=== PATIENT | female | born 1975 ===

== ENCOUNTER 2021-11-01 09:55 | Outpatient (REF) | payer MEDICAID, SELFPAY ==
--- NOTE | 2021-11-01 | PFT_ITS ---
FLOWS: FEV1 89% of predicted at 2.08 L. FVC 93% of predicted at 2.69 L. FEV1 to FVC ratio of 0.77. No bronchodilator response except in small to medium airways. LUNG VOLUMES: Total lung capacity 90% of predicted at 3.78 L. Residual volume 102% of predicted at 1.42 L. Slow vital capacity 85% of predicted at 2.36 L. Expiratory reserve volume 69% of predicted at 0.61 L. Diffusion capacity is normal. IMPRESSION: No obstructive or restrictive ventilatory defect. No bronchodilator response except in small to medium airways. Suman Caballero MD AP/MODL / [id number]
== END 2021-11-01 09:56 | disposition home or self-care (01) ==
LOC: HO.RESP 09:55
PROVIDERS: PCP Pediatrics; Visit Provider Pediatrics
DX: J30.9 Allergic rhinitis, unspecified (principal); J45.998 Other asthma
CPT/HCPCS: 94060; 94727; 94729

== ENCOUNTER 2023-09-25 14:30 | Outpatient (REF) | payer OTHER, SELFPAY ==
[2023-09-25 17:23] LABS: MANUAL DIFF FLAG NO
[2023-09-25 17:33] LABS: Basophils Absolute Auto 0.1 X10*3/uL (0.0-0.2); Basophils Percent Auto 0.6 % (0-2); Eosinophils Absolute Auto 0.2 X10*3/uL (0.0-0.4); Eosinophils Percent Auto 1.4 % (0-4); Hematocrit 37.1 % (37.0-47.0); Hemoglobin 12.4 g/dl (12.0-16.0); Imm Gran Abs Auto 0.04 X10*3/uL (0.00-0.03); Imm Gran Pct Auto 0.4 % (0.0-0.4); Lymphocytes Absolute Auto 1.7 X10*3/uL (1.2-4.9); Lymphocytes Percent Auto 15.7 % (20-40); Mean Corpuscular HGB Conc 33.4 g/dl (31.0-35.0); Mean Corpuscular Hemoglobin 28.9 pg (27.0-33.0); Mean Corpuscular Volume 86.5 fL (80.0-98.0); Mean Platelet Volume 10.1 fL (9.4-12.3); Monocytes Absolute Auto 0.5 X10*3/uL (0.1-1.2); Monocytes Percent Auto 4.6 % (2-11); Neutrophils Absolute Auto 8.3 x10*3/uL (2.0-8.3); Neutrophils Percent Auto 77.3 % (45-73); Platelet Count 394 X10*3/uL (160-400); Red Blood Count 4.29 X10*6/uL (4.20-5.50); Red Cell Distribution Width 12.9 % (11.0-16.0); White Blood Count 10.7 X10*3/uL (4.8-10.8)
[2023-09-25 17:48] LABS: Alanine Aminotransferase 6 U/L (0-31); Alkaline Phosphatase 66 U/L (39-117); Anion Gap 12 (12-20); Aspartate Amino Transferase 11 U/L (5-31); Bilirubin Total 0.5 mg/dL (0.0-1.0); Blood Urea Nitrogen 9 mg/dL (9-16); C Reactive Protein 0.23 mg/dL (< or = 0.50); Calcium 8.8 mg/dL (8.4-10.2); Carbon Dioxide 26 mmol/L (22-29); Chloride 107 mmol/L (96-108); Estimated Glomerular Filt Rate > 60; Glucose Random 98 mg/dL (60-115); Lactate Dehydrogenase 111 U/L (122-220); Lipase 12 U/L (8-78); Potassium 3.5 mmol/L (3.3-5.1); Sodium 141 mmol/L (135-145); Total Protein 7.4 g/dL (6.5-8.0)
[2023-09-25 18:19] LABS: TSH reflex Free T4 0.53 uIU/mL (0.32-4.0)
[2023-09-25 19:07] LABS: Erythrocyte Sedimentation Rate 20 MM/HR (0-20)
[2023-09-26 07:26] LABS: HIV AB/AG Nonreactive (Nonreactive); HIV Num 1 0.05 S/CO (0.00-0.99)
[2023-09-26 07:27] LABS: Syphilis Screen Nonreactive (Nonreactive)
== END 2023-09-25 14:31 | disposition home or self-care (01) ==
LOC: HO.CHCLDS 14:30
PROVIDERS: Visit Provider Family Medicine
DX: Z11.4 Encounter for screening for human immunodeficiency virus [HIV] (principal); R10.13 Epigastric pain; R63.4 Abnormal weight loss
CPT/HCPCS: 36415; 80053; 83615; 83690; 84443; 85025; 85652; 86140; 86780; 87389

== ENCOUNTER 2023-09-27 | Outpatient (REF) | payer OTHER, SELFPAY ==
[2023-09-30 06:51] LABS: OBS1 NEGATIVE (NEGATIVE); OBS2 NEGATIVE (NEGATIVE); OBS3 NEGATIVE (NEGATIVE)
[2023-09-30 06:52] LABS: OBS Int Ctl Valid YES
== END 2023-09-27 00:01 | disposition home or self-care (01) ==
LOC: HO.CHCLNP
PROVIDERS: Visit Provider Family Medicine
DX: R10.13 Epigastric pain (principal); R63.4 Abnormal weight loss
CPT/HCPCS: 82270; 87338

== ENCOUNTER 2023-10-14 11:33 | Outpatient (REF) | payer OTHER, SELFPAY ==
[2023-10-16 07:38] LABS: Immunoglobulin A 596 mg/dL (47-310); Transglutaminase IgA <1.0 U/mL
== END 2023-10-14 11:34 | disposition home or self-care (01) ==
LOC: HO.CHCLDS 11:33
PROVIDERS: Visit Provider Pediatrics
DX: K52.9 Noninfective gastroenteritis and colitis, unspecified (principal)
CPT/HCPCS: 36415; 82784; 86364

== ENCOUNTER 2023-11-06 10:33 | Outpatient (REF) | payer MEDICAID, SELFPAY ==
[2023-11-06 16:08] LABS: CT PCR NOT DETECTED (Not Detect.); NG PCR NOT DETECTED (Not Detect.)
== END 2023-11-06 10:34 | disposition home or self-care (01) ==
LOC: HO.CHCLNP 10:33
PROVIDERS: Visit Provider Pediatrics
DX: Z01.419 Encounter for gynecological examination (general) (routine) without abnormal findings (principal)
CPT/HCPCS: 0353U; 88142

== ENCOUNTER 2023-11-24 10:16 | Outpatient (AMB) | payer BC, SELFPAY ==
--- NOTE | 2023-11-24 10:27 | MHC.OFFVIS ---
Vital Signs 11/24/23 10:35 Height 4 ft 10 in Weight 115 lb 8.356 oz BMI 24.1 BP 114/54 L Blood Pressure Location Lt brachial Position Sitting Pulse 66 Pulse Source Pulse Oximeter Pulse Oximetry (%) 99 Oxygen Delivery Method Room Air Intake Visit Reasons: Epigastric pain Intake Note: Bindu presents in office today for a scheduled initial assessment visit. CC; Epigastric pain. Onset - Pt reports onset approximately dated 05/2023. Pt reports sx are intermittent. Pt reports pain is located almost under the rib cage / sternum. Pt reports that they have unintentionally lost approx. 20 lbs since May. Pt also reports having frequent GERD sx (reflux). Pt also reports having diarrhea, no constipation. Pt denies any presence of melena. Pt reports PCP recommended a liquid antacid which they have been taking PRN without much relief to this point. 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 Patient reports that she has been having epigastric pain postprandially that started way back in May. Patient reports that she has not changed anything different about her diet. Patient reports that she was not around people that had similar symptoms and did not travel anywhere. Patient states that she 1 day started with epigastric pain bloating and diarrhea. Patient reported nausea without vomiting. Since then patient has been having frequent postprandial loose stools with epigastric pain. Patient was told to take [id number] acid relieve when her symptoms are present. Since her symptoms began patient lost 20 lb or so. Patient denies any melena, hematochezia. Patient reports occasional dyspepsia without dysphagia or odynophagia. Patient reports epigastric burning, feels like acid is coming up specially after meals. Patient has no symptoms when she is drinking water. Patient reports that her symptoms are usually present after meals. Patient reports that despite having loose stools postprandially she still feels like she is constipated and bloated. PFSH Family History Paternal Grandfather FHx: stomach cancer Family/Other Lung cancer Social History Alcohol intake: never Patient Tobacco Use Status: Never used Tobacco Review of Systems Const Denies weight gain and Denies weight loss ENT Reports no additional complaints, Denies dysphagia and Denies odynophagia Card Reports no additional complaints Resp Reports no additional complaints GI Denies abdominal pain, Denies belching, Denies melena, Denies bloating, Denies change in bowel habits, Denies dysphagia, Denies excessive flatus, Denies dyspepsia, Denies heartburn, Denies diarrhea, Denies loose stools, Denies nausea, Denies odynophagia and Denies vomiting Musc Reports no additional complaints Neuro Reports no additional complaints Psych Reports no additional complaints Endo Reports no additional complaints Physical Exam Vital Signs: Last Vital Signs Pulse 66 11/24/23 10:35 BP 114/54 L 11/24/23 10:35 Pulse Ox 99 11/24/23 10:35 Oxygen Delivery Method Room Air 11/24/23 10:35 BMI result Body Mass Index 24.1 Const General: healthy appearing, no acute distress and well developed Nutritional Appearance: well nourished Orientation/consciousness: patient oriented x3 HEENT Face and sinus: Yes normal facial exam Mouth: Normal oral and palatal mucosa present Throat: Yes posterior oropharynx normal, Yes tonsils normal and Yes uvula midline Resp Effort & Inspection: normal respiratory effort, able to speak in complete sentences, no tracheal deviation and symmetric chest movement Auscultation: clear to auscultation bilaterally Cardio Rate: regular rate GI Inspection: Yes normal to inspection and No distended Palpation (GI): Soft to palpation, not firm, nontender and No hepatosplenomegaly present Auscultation: normal bowel sounds General: Yes no CVA tenderness Back/Spine/Pelvis Back: no CVA tenderness Skin General skin exam: elasticity normal, turgor normal and dry skin Neuro General: patient oriented x3 Psych Appearance: grossly normal Mental Status: mental status grossly normal Attitude: cooperative Assessment & Plan Assessment & Plan (1) GERD (gastroesophageal reflux disease): Code(s): K21.9 - Gastro-esophageal reflux disease without esophagitis Qualifiers: Esophagitis presence: esophagitis presence not specified Qualified Code(s): K21.9 - Gastro-esophageal reflux disease without esophagitis (2) Postprandial abdominal bloating: Code(s): R14.0 - Abdominal distension (gaseous) (3) Postprandial epigastric pain: Code(s): R10.13 - Epigastric pain (4) Postprandial diarrhea: Code(s): K52.9 - Noninfective gastroenteritis and colitis, unspecified (5) Constipation: Code(s): K59.00 - Constipation, unspecified Qualifiers: Constipation type: slow transit constipation Qualified Code(s): K59.01 - Slow transit constipation Plan Will rule out malabsorption and pancreatic insufficiency. Patient will be sent for FL upper GI/ small-bowel study. Patient will start taking omeprazole in the morning half an hour before breakfast. Patient will also take Citrucel after breakfast to help her bulk her stools and Senokot at night time to help her eliminate her bowels better. Discussed with patient avoiding dietary triggers and late night snacking. Staying upright for minimum 3 hours after meals discussed with patient. Patient will also try low FODMAP diet. List of food recommended as well as list of food to avoid given to patient. Patient will return in 6 months, sooner on as needed basis. She is agreeable to this plan and verbalizes understanding of instructions. She was given the opportunity to ask questions and all questions answered. Thank you for allowing me to participate in her care Orders: Orders Vitamin B12 and Folate Today R19.7 - Diarrhea, unspecified Pancreatic Elastase-1 Today R10.9 - Unspecified abdominal pain Vitamin D 25-OH (D2 and D3) Today E55.9 - Vitamin D deficiency, unspecified FL upper GI small bowel Today R10.13 - Epigastric pain, R14.0 - Abdominal distension (gaseous) Medications: New sennosides (Natural Senna Laxative) 17.2 mg (2 x 8.6 mg) PO BEDTIME 60 tabs 3RF constipation K59.00 - Constipation, unspecified methylcellulose (laxative) (Citrucel) take it with full glass of water 500 mg PO DAILY 30 tabs 2RF K59.00 - Constipation, unspecified omeprazole 20 mg PO DAILY 30 caps 3RF K21.9 - Gastro-esophageal reflux disease without esophagitis Coding Level of Care Code New Pt Level 4 (96470) Diagnoses Gastroesophageal reflux disease, unspecified whether esophagitis present K21.9 Esophagitis presence: esophagitis presence not specified Postprandial abdominal bloating R14.0 Postprandial epigastric pain R10.13 Postprandial diarrhea K52.9 Slow transit constipation K59.01 Constipation type: slow transit constipation Time Spent (min) 45 Comment 30 minutes spent with patient and additional 15 minutes spent reviewing her records
[2023-11-24 10:35] VITALS: BP 114/54; PULSE 66; O2SAT 99; BMI 24.1
== END 2023-11-24 11:06 | disposition home or self-care (01) ==
PROVIDERS: PCP Pediatrics; Visit Provider Nurse Practitioner Family
DX: K21.9 Gastro-esophageal reflux disease without esophagitis (principal); R14.0 Abdominal distension (gaseous); R10.13 Epigastric pain; K52.9 Noninfective gastroenteritis and colitis, unspecified; K59.01 Slow transit constipation
CPT/HCPCS: 99204

== ENCOUNTER 2023-11-24 10:16 | Outpatient (REF) | payer BC, SELFPAY ==
[2023-11-24 12:51] LABS: Folate 11.7 ng/mL (> or = 4.0); Vitamin B12 323 pg/mL (200-900)
[2023-11-28 12:48] LABS: Vitamin D 25-OH, D2 <4 ng/mL; Vitamin D 25-OH, D3 12 ng/mL; Vitamin D 25-OH, Total 12 ng/mL (30-100)
[2023-12-02 23:19] LABS: Pancreatic Elastase-1 >500 mcg/g
== END 2023-11-24 10:17 | disposition home or self-care (01) ==
LOC: HO.LAB 10:16
PROVIDERS: PCP Pediatrics; Visit Provider Nurse Practitioner Family
DX: E55.9 Vitamin D deficiency, unspecified (principal); R10.9 Unspecified abdominal pain; K21.9 Gastro-esophageal reflux disease without esophagitis; R14.0 Abdominal distension (gaseous); K52.9 Noninfective gastroenteritis and colitis, unspecified; K59.01 Slow transit constipation; R10.13 Epigastric pain
CPT/HCPCS: 36415; 82306; 82607; 82656; 82746

== ENCOUNTER 2024-01-29 07:45 | Outpatient (REF) | payer BC, SELFPAY ==
--- NOTE | ~2024-01-29 | FL_ITS ---
EXAMINATION: XR FLUOROSCOPY UPPER GI WITH SMALL BOWEL SERIES. CLINICAL INFORMATION: Reflux. Abdominal bloating. COMPARISON: None TECHNIQUE: Fluoroscopic air contrast upper GI examination was performed utilizing standard techniques with thin and thick barium and effervescent granules. Numerous spot images were obtained. FINDINGS: UPPER GI: Dual and single contrast images of the esophagus demonstrate normal caliber, contour, and mucosal pattern. No evidence of stricture, mass, or ulcerations identified. Esophageal peristalsis is moderately disorganized. A very small type I hiatal hernia is present. No significant gastroesophageal reflux was seen during the course of the examination and on reflux views. Dual contrast and single contrast images of the stomach demonstrated a normal contour. There is a mixed density present in the stomach that gives the appearance of multiple filling detects, however, this appearance changes with patient positioning. This likely represents retained food. Evaluation of the gastric mucosa is limited due to this. No masses are present. Contrast freely passed into the gastric antrum and duodenal bulb without delay. Single and air-contrast images of the duodenal bulb demonstrate no abnormality. The duodenal sweep has a normal appearance, course, and mucosal fold appearance. SMALL BOWEL SERIES: Professor Of Physical Education view demonstrates normal bowel gas pattern, with mild fecal material in the ascending and descending colon. There is a minimal levoconvex lumbar scoliosis. No suspicious bone abnormality. 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 Likely from childbirth. Hip joints appear normal. No abnormal soft tissue calcifications or organomegaly. Lung bases are clear. The imaged small bowel has a normal fold pattern and caliber. No strictures, masses, or dilated segment/loops are present. Contrast is seen in the right colon after 60 minutes. After 60 minutes, there is still a large amount of contrast remaining present in the stomach. FLUOROSCOPY TIME: 4 minutes 6 seconds Number of Spot Images: 10 Number of Cine: 15 DOSE AREA PRODUCT: 2315 uGy-m2 (microgray-meter squared) FL/FL upper GI small bowel IMPRESSION: 1. Very small type I hiatal hernia 2. Moderately disordered esophageal peristalsis. 3. There is a mixed density present in the stomach that gives the appearance of multiple filling detects in the gastric mucosa, however, this appearance changes with patient positioning. This mixed density likely represents retained food. Evaluation of the gastric mucosa is, therefore, limited. After 60 minutes, there is still a large amount of barium present in the stomach. This may represent gastric hypomotility/gastroparesis. Recommend correlation with gastric emptying study. 4. Unremarkable small bowel series. Terminal ileum is normal. Contrast is seen in the right colon after 60 minutes. This procedure was performed by Stephon Boyd PA-C, and supervised by Dr. Holt Electronically signed by: Juan J Holt MD 01/30/2024 05:35 PM EDT
== END 2024-01-29 07:46 | disposition home or self-care (01) ==
LOC: HO.XRAY 07:45
PROVIDERS: PCP Pediatrics; Visit Provider Nurse Practitioner Family
DX: R14.0 Abdominal distension (gaseous) (principal); R10.13 Epigastric pain
CPT/HCPCS: 74240; 74248

== ENCOUNTER → 2024-01-29 07:46 | Outpatient (BNV) | payer BC, SELFPAY | PROVIDERS: PCP Pediatrics; Visit Provider Radiology Diagnostic Radiology | DX: R14.0 Abdominal distension (gaseous) (principal); K21.9 Gastro-esophageal reflux disease without esophagitis | CPT/HCPCS: 74240; 74248 ==

== ENCOUNTER 2024-05-11 09:54 | Outpatient (AMB) | payer BC, SELFPAY ==
--- NOTE | 2024-05-11 10:01 | MHC.OFFVIS ---
Vital Signs 05/11/24 10:09 Height 4 ft 10 in Weight 123 lb 14.397 oz BMI 25.9 BP 114/56 L Blood Pressure Location Lt brachial Position Sitting Pulse 72 Pulse Source Pulse Oximeter Pulse Oximetry (%) 99 Oxygen Delivery Method Room Air Intake Visit Reasons: 6 month follow up Intake Note: sennosides 8.6 mg tablet?(Natural Senna Laxative)?17.2 mg (2 x 8.6 mg) PO BEDTIME 60 tabs 3RF Majo,Natalie D 11/24/23 10:59 (Transmitted) methylcellulose (laxative) 500 mg tablet?(Citrucel)?500 mg PO DAILY 30 tabs 2RF Majo,Natalie D 11/24/23 10:59 (Transmitted) omeprazole 20 mg capsule,delayed release?20 mg PO DAILY 30 caps 3RF Majo,Natalie D 11/24/23 10:59 (Transmitted) Pt still taking medications PRN. Relevant Flags or Indicators ? Requires [employer] Consultant? Jeni Ruano presents in office today for a scheduled 6 mos FUV. CC; Recent labs, diagnostics, or med orders placed. ?All fulfilled. Relevant GI Sx or new concerns per pt? No changes to presentation. Pt states that they had 2-3 mos. where they felt completely normal. Pt now experiencing some of the similar chronic sx as their previous episodes. ? Hx of any recent surgeries? None [employer] Consultant Required: No Allergies No Known Allergies Allergy (Verified 05/11/24 10:02) HPI HPI 6 month follow up: Details: LAST VISIT: GERD (gastroesophageal reflux disease) Postprandial abdominal bloating Postprandial epigastric pain Postprandial diarrhea Constipation Plan Will rule out malabsorption and pancreatic insufficiency. Patient will be sent for [place] upper GI/ small-bowel study. Patient will start taking omeprazole in the morning half an hour before breakfast. Patient will also take Citrucel after breakfast to help her bulk her stools and Senokot at night time to help her eliminate her bowels better. Discussed with patient avoiding dietary triggers and late night snacking. Staying upright for minimum 3 hours after meals discussed with patient. Patient will also try low FODMAP diet. List of food recommended as well as list of food to avoid given to patient. Patient will return in 6 months, sooner on as needed basis. She is agreeable to this plan and verbalizes understanding of instructions. She was given the opportunity to ask questions and all questions answered. ? Thank you for allowing me to participate in her care Orders Orders Vitamin B12 and Folate Today R19.7 Pancreatic Elastase-1 Today R10.9 Vitamin D 25-OH (D2 and D3) Today E55.9 FL upper GI small bowel Today R10.13, R14.0 Medications New sennosides (Natural Senna Laxative) 17.2 mg (2 x 8.6 mg) PO BEDTIME 60 tabs 3RF constipation K59.00 methylcellulose (laxative) (Citrucel) take it with full glass of water 500 mg PO DAILY 30 tabs 2RF K59.00 omeprazole 20 mg PO DAILY 30 caps 3RF K21.9 TODAY'S VISIT Patient is here today for follow-up and to discuss going for colonoscopy. Patient reports that she was doing well till about couple weeks ago when she started again with postprandial loose stools. Patient reports that does not happen every time she eats only with certain food. Patient denies melena, hematochezia, unintentional weight loss or ribbon like stools. Reports occasional abdominal bloating. Reflux controlled for the most part with omeprazole, however she continues to have epigastric burning sometimes depending on what she eats. For the most part patient reports that she has been doing well. Denies any family history of colorectal cancer. No issues with anesthesia in the past. No history of sleep apnea. Not on any anticoagulation medication. Upper GI series results discussed with patient. Possibility that patient might have gastroparesis. Patient is not on GLP 1. Denies feeling full after meals. Lab results discussed with patient as well. Low vitamin-D level will increase to 5000 units daily PFSH Family History Paternal Grandfather FHx: stomach cancer Family/Other Lung cancer Social History Alcohol intake: never Patient Tobacco Use Status: Never used Tobacco Review of Systems Const Denies weight gain and Denies weight loss ENT Reports no additional complaints, Denies dysphagia and Denies odynophagia Card Reports no additional complaints Resp Reports no additional complaints GI Denies abdominal pain, Denies belching, Denies melena, Reports bloating, Denies change in bowel habits, Denies dysphagia, Denies excessive flatus, Denies dyspepsia, Reports heartburn (Occasional), Denies diarrhea, Reports loose stools (Occasional postprandially), Denies nausea, Denies odynophagia and Denies vomiting Reports no additional complaints Musc Reports no additional complaints Neuro Reports no additional complaints Psych Reports no additional complaints Endo Reports no additional complaints Physical Exam Vital Signs: Last Vital Signs Pulse 72 05/11/24 10:09 BP 114/56 L 05/11/24 10:09 Pulse Ox 99 05/11/24 10:09 Oxygen Delivery Method Room Air 05/11/24 10:09 BMI result Body Mass Index 25.9 Const General: healthy appearing, no acute distress and well developed Nutritional Appearance: well nourished Orientation/consciousness: patient oriented x3 Resp Effort & Inspection: normal respiratory effort, able to speak in complete sentences, no tracheal deviation and symmetric chest movement Auscultation: clear to auscultation bilaterally Cardio Rate: regular rate GI Inspection: Yes normal to inspection and No distended Palpation (GI): Soft to palpation, not firm, nontender and No hepatosplenomegaly present Auscultation: normal bowel sounds General: Yes no CVA tenderness Back/Spine/Pelvis Back: no CVA tenderness Skin General skin exam: elasticity normal, turgor normal and dry skin Neuro General: patient oriented x3 Psych Appearance: grossly normal Mental Status: mental status grossly normal Results Reviewed Results Reviewed: Laboratory Tests 10/14/23 11/24/23 11/24/23 11:35 11:23 23:00 Vitamin B12 323 25-OH Vitamin D Total 12 L Folate 11.7 Stool Pancreat Elastase >500 Tiss Transglutamin IgA <1.0 UPPER GI SERIES WITH SMALL-BOWEL IMPRESSION: 1. Very small type I hiatal hernia 2. Moderately disordered esophageal peristalsis. 3. There is a mixed density present in the stomach that gives the appearance of multiple filling detects in the gastric mucosa, however, this appearance changes with patient positioning. This mixed density likely represents retained food. Evaluation of the gastric mucosa is, therefore, limited. After 60 minutes, there is still a large amount of barium present in the stomach. This may represent gastric hypomotility/gastroparesis. Recommend correlation with gastric emptying study. 4. Unremarkable small bowel series. Terminal ileum is normal. Contrast is seen in the right colon after 60 minutes. Assessment & Plan Assessment & Plan (1) GERD (gastroesophageal reflux disease): Code(s): K21.9 - Gastro-esophageal reflux disease without esophagitis Qualifiers: Esophagitis presence: esophagitis presence not specified Qualified Code(s): K21.9 - Gastro-esophageal reflux disease without esophagitis (2) Postprandial abdominal bloating: Code(s): R14.0 - Abdominal distension (gaseous) (3) Postprandial epigastric pain: Code(s): R10.13 - Epigastric pain (4) Postprandial diarrhea: Code(s): K52.9 - Noninfective gastroenteritis and colitis, unspecified (5) Constipation: Code(s): K59.00 - Constipation, unspecified Qualifiers: Constipation type: slow transit constipation Qualified Code(s): K59.01 - Slow transit constipation (6) Screen for colon cancer: Code(s): Z12.11 - Encounter for screening for malignant neoplasm of colon Plan Patient will increase fluid intake and activity to promote better bowel motility. Continue vitamin-D supplements. What to expect before during and after procedure discussed with patient. Stressed the importance of good bowel prep and clear liquid diet day before procedure. Patient denies any cardiac or respiratory symptoms. I will see her after the procedure, sooner on as needed basis. She is agreeable to this plan and verbalizes understanding of instructions. She was given the opportunity to ask questions and all questions answered. Thank you for allowing me to participate in her care Medications: New polyethylene glycol 3350 (Miralax) As directed by gastroenterology department at [facility] 238 grams PO ONCE 238 grams 0RF Z12.11 - Encounter for screening for malignant neoplasm of colon cholecalciferol (vitamin D3) 125 mcg PO DAILY 90 caps 3RF bisacodyl (Dulcolax (bisacodyl)) take 4 tabs at noon the day before your colonoscopy 20 mg (4 x 5 mg) PO ONCE 4 tabs 0RF 1 day Z12.11 - Encounter for screening for malignant neoplasm of colon Discontinued sennosides Discontinued Reason: Patient no longer taking 17.2 mg (2 x 8.6 mg) PO BEDTIME 60 tabs 3RF constipation K59.00 - Constipation, unspecified Coding Level of Care Code Est Pt Level 4 (73079) Diagnoses Gastroesophageal reflux disease, unspecified whether esophagitis present K21.9 Esophagitis presence: esophagitis presence not specified Postprandial abdominal bloating R14.0 Postprandial epigastric pain R10.13 Postprandial diarrhea K52.9 Slow transit constipation K59.01 Constipation type: slow transit constipation Screen for colon cancer Z12.11 Time Spent (min) 30 Comment 20 minutes spent with patient and additional 10 minutes spent reviewing her records
[2024-05-11 10:09] VITALS: BP 114/56; PULSE 72; O2SAT 99; BMI 25.9
== END 2024-05-11 10:58 | disposition home or self-care (01) ==
PROVIDERS: PCP Pediatrics; Visit Provider Nurse Practitioner Family
DX: Z01.818 Encounter for other preprocedural examination (principal); Z12.11 Encounter for screening for malignant neoplasm of colon; K52.9 Noninfective gastroenteritis and colitis, unspecified; K21.9 Gastro-esophageal reflux disease without esophagitis
CPT/HCPCS: S0285

== ENCOUNTER → 2024-05-11 09:54 | Outpatient (BNVA) | payer BC, SELFPAY | PROVIDERS: PCP Pediatrics; Visit Provider Nurse Practitioner Family ==

== ENCOUNTER 2024-11-24 11:57 | Outpatient (REF) | payer BC, SELFPAY ==
--- OUTSIDE RECORDS SUMMARY | 2024-11-24 13:55 | XMS_ITS | Clinical Summary ---
Author Organization [facility] ity Address [address] [place] [address] Care Team Providers Care Refrigeration Supervisor Name Role Phone Unavailable Primary Care Provider Unavailabl e Social History Tobacco Use Types Packs/Day Years Used Date Smoking Tobacco: Never Assessed Comments Unknown Sex and Gender Information Value Date Recorded Sex Assigned at Not on file Legal Sex Female 4:53 AM EST Gender Identity Not on file Sexual Orientation Not on file Plan of Treatment Health Maintenance Due Date Last Done Comments DTaP,Tdap,and Td Vaccines (1 - Tdap) 09/17/1995 Hepatitis B Vaccines (1 of 3 - 19+ 3-dose series) 09/17/1995 Cervical Cancer Screening: P ap Smear 1997 Colorectal Cancer Screening: Colonoscopy 07/08/2023 Depression Screening 07/08/2023 HIV Screening 07/08/2023 Hepatitis C Screening 07/08/2023 Social Influencers of Health Screening 07/08/2023 COVID-19 Vaccine (2023-2 5 season) 2024 Influenza Vaccine (Season Ended) 2025 Breast Cancer Screening 02/15/2026 02/16/20 24, 01/31/2023, 11/19/2018 HIB Vaccines Aged Out No longer eligi ble based on patient's age to complete this topic HPV Vaccines Aged Out No longer eligi ble based on patient's age to complete this topic Hepatitis A Vaccines Aged Out No long er eligible based on patient's age to complete this topic IPV Vaccines Aged Out No longer eligi ble based on patient's age to complete this topic MMR Vaccines Aged Out No longer eligi ble based on patient's age to complete this topic Meningococcal ACWY Vaccine Aged Out N o longer eligible based on patient's age to complete this topic Meningococcal B Vaccine Aged Out No l onger eligible based on patient's age to complete this topic Pneumococcal Vaccine: Pediatrics (0 to 5 Years) and At-Risk Patients (6 to 64 Years) Aged Out No longer eligible b ased on patient's age to complete this topic RSV Immunization Patients Under 20 months Aged Out No longer eligible b ased on patient's age to complete this topic Varicella Vaccines Aged Out No longer eligible based on patient's age to complete this topic Procedures Procedure Name Priority Date/Time Associated Diagnosis Comments [facility] SCREENING DIGITAL Routine 02/16/2024 9:49 AM EDT Encounter for screening mammogram for malignant neoplasm of breast from Last 3 Months or Most Recently Relevant to Health Maintenance Results * [facility] SCREENING DIGITAL (02/16/2024 9:49 AM EDT) Anatomical Region Laterality Modality Mammography 02/13/2024 9:39 AM EDT Narrative 02/16/2024 9:[address] [facility] Diagnostic Imaging Department [address] [place] [id number] Patient: BINDU LUCIA D.O.B./Age/Sex: 1975 - 48 - F Unit#: [id number] Location/Status: [facility] CLI Mnemonic/Ordering Site: [facility] Ordering Physician: POORNIMA POLO [facility] Screening Digital - 02/14/24 - 1121 Report Status:Signed EXAM: [facility] Screening Digital EXAM DATE AND TIME: 02/14/2024 11:21 AM HISTORY: Screening. COMPARISON: 02/04/23, 01/31/23, 11/19/18, 05/19/17 TECHNIQUE: Bilateral digital breast tomosynthesis was performed in the CC and MLO projections. Computer aided detection with [employer] 3D 3.1 was employed. TISSUE DENSITY: b. There are scattered areas of fibroglandular density. FINDINGS: No suspicious masses, grouped microcalcifications, or areas of architectural distortion are seen. The skin and vascularity are unremarkable. IMPRESSION: Stable mammographic appearance of the breasts. No evidence of malignancy is seen. A negative mammogram in the presence of a clinically suspicious palpable abnormality does not preclude the possibility of malignancy or alter the indications for biopsy. BI-RADS: Category 1: Negative RECOMMENDATION(S): 1: Routine screening mammogram BILATERAL in 1 year. Mammogram performed at [facility] [address] [place] [address] Dictating Physician: JACQUELINE TOMAS MD Electronically Signed by: JACQUELINE TOMAS MD Dic Date/Time: 02/16/24947 Sign date/Time: 02/16/24948 Procedure Note Jacqueline Tomas MD - 03/24/[address] [facility] Diagnostic Imaging Department [address] [place] [address] Patient: BINDU LUCIA/Age/Sex: 1975 - 48 - F Unit#: [id number] Location/Status: SPDIMAM/REG CLI Mnemonic/Ordering Site: [facility] Ordering Physician: POORNIMA POLO [facility] Screening Digital - 02/14/24 - 1121 Report Status:Signed EXAM: [facility] Screening Digital EXAM DATE AND TIME: 02/14/2024 11:21 AM HISTORY: Screening. COMPARISON: 02/04/23, 01/31/23, 11/19/18, 05/19/17 TECHNIQUE: Bilateral digital breast tomosynthesis was performed in the CCand MLO projections. Computer aided detection with [employer] 3D 3.1was employed. TISSUE DENSITY: b. There are scattered areas of fibroglandular density. FINDINGS: No suspicious masses, grouped microcalcifications, or areas ofarchitectural distortion are seen. The skin and vascularity are unremarkable. IMPRESSION: Stable mammographic appearance of the breasts. No evidence of malignancyis seen. A negative mammogram in the presence of a clinically suspicious palpable abnormality does not preclude the possibility of malignancy or alter the indications for biopsy. BI-RADS: Category 1: Negative RECOMMENDATION(S): 1: Routine screening mammogram BILATERAL in 1 year. Mammogram performed at [place] [address] Dictating Physician: JACQUELINE TOMAS MD Electronically Signed by: JACQUELINE TOMAS MD Dic Date/Time: 02/16/24947 Sign date/Time: 02/16/24948 us Poornima Polo MD IMG BI PROCEDURES Final Resul t from Last 3 Months or Most Recently Relevant to Health Maintenance
[2024-11-24 14:20] LABS: MANUAL DIFF FLAG NO
[2024-11-24 14:27] LABS: Basophils Absolute Auto 0.1 X10*3/uL (0.0-0.2); Basophils Percent Auto 0.8 % (0-2); Eosinophils Absolute Auto 0.3 X10*3/uL (0.0-0.4); Hemoglobin 12.6 g/dl (12.0-16.0); Imm Gran Abs Auto 0.02 X10*3/uL (0.00-0.03); Imm Gran Pct Auto 0.3 % (0.0-0.4); Lymphocytes Absolute Auto 1.9 X10*3/uL (1.2-4.9); Lymphocytes Percent Auto 24.8 % (20-40); Mean Corpuscular HGB Conc 33.2 g/dl (31.0-35.0); Mean Corpuscular Hemoglobin 27.9 pg (27.0-33.0); Mean Corpuscular Volume 84.3 fL (80.0-98.0); Monocytes Absolute Auto 0.5 X10*3/uL (0.1-1.2); Monocytes Percent Auto 6.9 % (2-11); Neutrophils Absolute Auto 4.9 x10*3/uL (2.0-8.3); Neutrophils Percent Auto 63.2 % (45-73); Platelet Count 406 X10*3/uL (160-400); Red Blood Count 4.51 X10*6/uL (4.20-5.50); Red Cell Distribution Width 12.8 % (11.0-16.0); White Blood Count 7.8 X10*3/uL (4.8-10.8)
[2024-11-25 07:24] LABS: IgA 571 mg/dL (47-310); IgG 1141 mg/dL (600-1640); IgM 25 mg/dL (50-300)
== END 2024-11-24 11:58 | disposition home or self-care (01) ==
LOC: HO.CHCLDS 11:57
PROVIDERS: Visit Provider Pediatrics
DX: Z91.09 Other allergy status, other than to drugs and biological substances (principal); T78.40XA Allergy, unspecified, initial encounter
CPT/HCPCS: 36415; 82784; 85025